=== PATIENT | male | born 1940 | race Caucasian/White ===

== ENCOUNTER 2021-02-24 10:55 | Outpatient (CLI) | payer MEDICARE ==
[2021-02-25 00:13] LABS: SARS-CoV-2 PCR by NAA Not Detected (NotDetected)
== END 2021-02-24 10:56 | disposition home or self-care (01) ==
LOC: CSHLAB 10:55
PROVIDERS: ATTEND Internal Medicine Hematology & Oncology
DX: Z20.822 Contact with and (suspected) exposure to COVID-19 (principal); D46.Z Other myelodysplastic syndromes
CPT/HCPCS: U0003; U0005

== ENCOUNTER 2023-04-12 14:07 | Outpatient (CLI) | payer MEDICARE ==
[2023-04-12 15:49] LABS: Anion Gap 11 mmol/L (10-20); BUN (Urea Nitrogen) 15 mg/dL (8.4-25.7); Calc. Creatinine Clearance 0 mL/min (70-130); Calcium 8.7 mg/dL (7.8-10.44); Carbon Dioxide 25 mmol/L (23-31); Chloride 106 mmol/L (98-107); Estimated GFR 87; Glucose 99 mg/dL (83-110); Potassium 3.6 mmol/L (3.5-5.1); Sodium 138 mmol/L (136-145)
== END 2023-04-12 14:08 | disposition home or self-care (01) ==
LOC: CSHLAB 14:07
PROVIDERS: ATTEND Surgery
DX: Z01.812 Encounter for preprocedural laboratory examination (principal); K40.90 Unilateral inguinal hernia, without obstruction or gangrene, not specified as recurrent
CPT/HCPCS: 80048

== ENCOUNTER 2023-04-13 05:43 | Day surgery (SDC) | payer MEDICARE ==
[2023-04-12 14:35] VITALS: BMI 22.8
[2023-04-13] MEDS ORDERED: EPINEPHrine 1 MG/ML VIAL ONE (06:45)
[2023-04-13] MEDS ORDERED: Bupivacaine PF 0.5% 30 ML VIAL ONE (06:45)
[2023-04-13] MEDS ORDERED: Esmolol 100 MG/10 ML VIAL ONE (07:09)
[2023-04-13] MEDS ORDERED: Dexamethasone 4 mg/ml Vial ONE (07:09)
[2023-04-13] MEDS ORDERED: fentaNYL 50 mcg/mL 1 mL Vial ONE ×3 (07:09→08:44)
[2023-04-13] MEDS ORDERED: Rocuronium Bromide 10 MG/ML (10ML VIAL) ONE (07:09)
[2023-04-13] MEDS ORDERED: Ondansetron PF 4 MG/2 ML Vial ONE (07:09)
[2023-04-13] MEDS ORDERED: PROPOFOL 20 ML ONE (07:09)
[2023-04-13] MEDS ORDERED: Lidocaine 1% PF 5 ML VIAL ONE (07:10)
[2023-04-13] MEDS ORDERED: Clindamycin/D5W 600 mg/50 ml Premix Bag ONE (07:14)
[2023-04-13] MEDS ORDERED: SUGAMMADEX SODIUM 200 MG/2 ML VIAL ONE (07:54)
[2023-04-13] MEDS ORDERED: HYDROcodone/Acetaminophen 5/325 mg Tablet PO PRN (08:29)
[2023-04-13] MEDS ORDERED: Acetaminophen 325 MG TAB PO PRN (08:29)
[2023-04-13] MEDS ORDERED: HYDROcodone/Acetaminophen 5/325 mg Tablet ONE (09:10)
== END 2023-04-13 10:05 | disposition home or self-care (01) ==
LOC: CSHSDC 05:43
PROVIDERS: ATTEND Surgery
PROC: 0YQ54ZZ Repair Right Inguinal Region, Percutaneous Endoscopic Approach (ICD-10-PCS; principal; 2023-04-13)
DX: K40.90 Unilateral inguinal hernia, without obstruction or gangrene, not specified as recurrent (principal); K41.90 Unilateral femoral hernia, without obstruction or gangrene, not specified as recurrent; K45.8 Other specified abdominal hernia without obstruction or gangrene; I25.10 Atherosclerotic heart disease of native coronary artery without angina pectoris; C95.91 Leukemia, unspecified, in remission; I10 Essential (primary) hypertension; M19.90 Unspecified osteoarthritis, unspecified site; E78.2 Mixed hyperlipidemia; D46.9 Myelodysplastic syndrome, unspecified; Z87.891 Personal history of nicotine dependence; Z96.659 Presence of unspecified artificial knee joint; Z88.0 Allergy status to penicillin; Z79.899 Other long term (current) drug therapy; Z91.048 Other nonmedicinal substance allergy status
CPT/HCPCS: 49650; C1713; C1781; J0171; J3010; J0665; J1100; J2405; J2704; J3490

== ENCOUNTER 2023-11-16 06:25 | Day surgery (SDC) | payer MEDICARE ==
[2023-11-15 14:06] VITALS: BMI 22.0
[2023-11-16] MEDS ORDERED: Ondansetron PF 4 MG/2 ML Vial ONE ×2 (07:06→09:32)
[2023-11-16] MEDS ORDERED: Dexmedetomidine 200 MCG/2 ML VIAL ONE (07:06)
[2023-11-16] MEDS ORDERED: Dexamethasone 4 mg/ml Vial ONE ×2 (07:06→08:39)
[2023-11-16] MEDS ORDERED: PROPOFOL 20 ML ONE (07:06)
[2023-11-16] MEDS ORDERED: Lidocaine 1% PF 5 ML VIAL ONE (07:06)
[2023-11-16] MEDS ORDERED: Rocuronium Bromide 10 MG/ML (10ML VIAL) ONE (07:06)
[2023-11-16] MEDS ORDERED: Bupivacaine HCl 0.5%/Epinephrine 1:200,000/PF 30 ml Vial ONE (07:14)
[2023-11-16] MEDS ORDERED: Clindamycin/D5W 600 mg/50 ml Premix Bag ONE (07:29)
[2023-11-16] MEDS ORDERED: fentaNYL 50 mcg/mL 1 mL Vial ONE ×3 (08:13→09:47)
[2023-11-16] MEDS ORDERED: ePHEDrine Sulfate 50 MG/10 ML VIAL ONE (08:42)
[2023-11-16] MEDS ORDERED: PHENYLEPHRINE-NS 100 MCG/ML 10 ML SYRINGE ONE (08:52)
[2023-11-16] MEDS ORDERED: Sevoflurane 250 ML INH ANEST BOTTLE ONE (09:04)
[2023-11-16] MEDS ORDERED: SUGAMMADEX SODIUM 200 MG/2 ML VIAL ONE (09:59)
[2023-11-16] MEDS ORDERED: HYDROcodone/Acetaminophen 5/325 mg Tablet ONE (10:12)
== END 2023-11-16 10:50 | disposition home or self-care (01) ==
LOC: CSHSDC 06:25
PROVIDERS: ATTEND Surgery
PROC: 0YU64JZ Supplement Left Inguinal Region with Synthetic Substitute, Percutaneous Endoscopic Approach (ICD-10-PCS; principal; 2023-11-16)
DX: K40.90 Unilateral inguinal hernia, without obstruction or gangrene, not specified as recurrent (principal); C92.00 Acute myeloblastic leukemia, not having achieved remission; I10 Essential (primary) hypertension; M19.90 Unspecified osteoarthritis, unspecified site; E78.2 Mixed hyperlipidemia; Z87.891 Personal history of nicotine dependence; Z88.0 Allergy status to penicillin; Z79.899 Other long term (current) drug therapy
CPT/HCPCS: 49650; C1781; J1100; J2405; J2704; J3010; J3490